=== PATIENT | male | born 1990 | race Caucasian/White ===

== ENCOUNTER 2019-06-09 21:44 | Observation (INO) | payer BC, SELFPAY ==
[~2019-06-09 21:44] MED LIST: Iopamidol-370 76% 500 ML 1 ML ONE
[2019-06-09] MEDS ORDERED: Ondansetron PF 4 MG/2 ML Vial ONE (22:07)
[2019-06-09] MEDS ORDERED: Ketorolac Tromethamine 30 MG/ML VIAL ONE (22:12)
[2019-06-09] MEDS ORDERED: Lorazepam 2 MG/ML VIAL ONE (22:12)
[2019-06-09 22:14] LABS: #Basophils 0.2 thou/uL (0.0-0.2); #Eosinphils 0.3 thou/uL (0.0-0.7); %Basophils 1.1 % (0.0-1.0); %Eosinophils 2.3 % (0.0-10.0); %Monocytes 7.4 % (0.0-10.0); %Neutrophils 52.2 % (42.0-75.0); Hemoglobin 18.4 g/dL (14.0-18.0); Mean Corpuscular HGB CONC 35.5 g/dL (32.0-36.0); Mean Corpuscular Hemoglobin 33.7 pg (27.0-31.0); Mean Corpuscular Volume 94.8 fL (78.0-98.0); Mean Platelet Volume 7.8 fL (7.4-10.4); Platelet Count 315 thou/uL (130-400); RBC Distribution Width 11.2 % (11.5-14.5); Red Blood Cell (RBC) Count 5.46 mill/uL (4.70-6.10); White Blood Cell (WBC) Count 13.4 thou/uL (4.8-10.8)
[2019-06-09] MEDS ORDERED: CEFAZOLIN 1 GM VIAL ONE ×2 (22:18→22:19)
[2019-06-09] MEDS ORDERED: Morphine 4 MG/ML VIAL ONE (22:18)
[2019-06-09] MEDS ORDERED: Adacel (T-DAP) 0.5 ML SYRINGE ONE (22:18)
[2019-06-09 22:21] LABS: BHCG - Serum Negative; Pregs Control Background? CLEAR/WHITE (CLR/WHITE); Pregs Control Bar Appear? YES (CONTROL BAR)
[2019-06-09 22:27] LABS: ALT (SGPT) 59 U/L (8-55); AST (SGOT) 63 U/L (5-34); Alkaline Phosphatase 91 U/L (40-110); Anion Gap 19 mmol/L (10-20); BUN (Urea Nitrogen) 19 mg/dL (8.9-20.6); Bilirubin, Total 0.4 mg/dL (0.2-1.2); Calc. Creatinine Clearance 0 mL/min (70-130); Calcium 10.2 mg/dL (7.8-10.44); Carbon Dioxide 22 mmol/L (22-29); Chloride 101 mmol/L (98-107); Estimated GFR-MDRD 74; Globulin 3.2 g/dL (2.4-3.5); Glucose 130 mg/dL (70-105); Lipase 63 U/L (8-78); Potassium 3.3 mmol/L (3.5-5.1); Protein, Total 8.2 g/dL (6.0-8.3); Sodium 139 mmol/L (136-145)
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
[2019-06-09] MEDS ORDERED: Lidocaine 1% w/Epinephrine 1:100K 20 ML VIAL ONE (23:05)
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
[2019-06-09 23:12] LABS: Acetaminophen Less than 6.0 mcg/mL (10.0-30.0); Alcohol Less than 10 mg/dL (Less than 10); Salicylate Less than 8.0 mg/dL (15.0-30.0)
[2019-06-09 23:15] LABS: Bilirubin Negative (Negative); Blood, Urine Trace (Negative); Clarity Clear (Clear); Glucose, Urine (Dipstick) 100 mg/dL (Negative); Leukocyte Negative (Negative); Nitrite Negative (Negative); Protein, Urine (Dipstick) Negative (Neg-Trace); Urobilinogen 0.2 mg/dL (Less than 2)
[2019-06-09 23:19] LABS: Bacteria/HPF None Seen HPF (None Seen); Squamous Epithelial 0-3 HPF (0-3); WBC/HPF 0-3 HPF (0-3)
[2019-06-09 23:28] LABS: Amphetamine Not Detected (NotDetected); Barbiturates Screen Not Detected (NotDetected); Benzodiazepine Screen Detected (NotDetected); Cocaine Metabolite Screen Not Detected (NotDetected); Medtox Control Line Valid? VALID (VALID); Medtox Reader # READER 4; Methadone Not Detected (NotDetected); Methamphetamine Not Detected (NotDetected); Opiate Screen Detected (NotDetected); Oxycodone Screen Not Detected (NotDetected); Phencyclidine (PCP) Not Detected (NotDetected); THC/Cannabinoid Screen Detected (NotDetected); Tricyclic Screen Not Detected (NotDetected)
[2019-06-10 00:18] LABS: Hemoglobin 16.8 g/dL (14.0-18.0); Mean Corpuscular Hemoglobin 33.9 pg (27.0-31.0); Mean Corpuscular Volume 94.2 fL (78.0-98.0); Platelet Count 267 thou/uL (130-400); RBC Distribution Width 11.1 % (11.5-14.5); Red Blood Cell (RBC) Count 4.95 mill/uL (4.70-6.10); White Blood Cell (WBC) Count 22.4 thou/uL (4.8-10.8)
[2019-06-10 00:36] LABS: Band 6 % (5-11); Lymphocytes 5 % (21-51); MDiff Complete? YES; Monocytes 11 % (0-10); Neutrophil 77 % (42-75); Reactive Lymphocytes 1 % (0-10)
[2019-06-10 00:37] LABS: Free T4 (Free Thyroxine) 0.89 ng/dL (0.70-1.48); Thyroid Stimulating Hormone 3.3532 uIU/mL (0.35-4.94)
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
[2019-06-10] MEDS ORDERED: Cyclobenzaprine 10 MG TAB PO PRN (04:11)
[2019-06-10] MEDS ORDERED: Dextrose 5% in Water 1,000 ML IV PRN (04:11)
[2019-06-10] MEDS ORDERED: Ondansetron ODT 4 MG TAB PO PRN (04:11)
[2019-06-10] MEDS ORDERED: traMADol HCl 50 MG TAB PO PRN (04:11)
[2019-06-10] MEDS ORDERED: Sodium Chloride 0.9% 1,000 ML IV SCH (04:11)
[2019-06-10] MEDS ORDERED: Ondansetron PF 4 MG/2 ML Vial IVP PRN (04:11)
[2019-06-10] MEDS ORDERED: Dextrose 50% Abboject 50 ML SYRINGE SLOW IVP PRN (04:11)
[2019-06-10 05:04] LABS: Magnesium 1.8 mg/dL (1.6-2.6); Phosphorus 2.4 mg/dL (2.3-4.7)
[2019-06-10] MEDS ORDERED: Acetaminophen 325 MG TAB ONE (05:57)
[2019-06-10] MEDS ORDERED: Acetaminophen 325 MG TAB PO SCH (06:00)
[2019-06-10] MEDS ORDERED: traMADol HCl 50 MG TAB ONE (06:11)
[2019-06-10 07:04] LABS: Anion Gap 16 mmol/L (10-20); BUN (Urea Nitrogen) 15 mg/dL (8.9-20.6); Calc. Creatinine Clearance 0 mL/min (70-130); Calcium 9.1 mg/dL (7.8-10.44); Carbon Dioxide 18 mmol/L (22-29); Chloride 109 mmol/L (98-107); Estimated GFR-MDRD Greater than 90; Glucose 115 mg/dL (70-105); Potassium 3.7 mmol/L (3.5-5.1); Sodium 139 mmol/L (136-145)
[2019-06-10] MEDS ORDERED: Famotidine 20 MG TAB PO SCH (09:00)
== END 2019-06-10 11:42 | disposition home or self-care (01) ==
LOC: EDSEX 21:44 → ERS 21:44 → ERHOLD 06-10 01:30
PROVIDERS: ADMIT Surgery; ATTEND Surgery
DX: F07.81 Postconcussional syndrome (principal); S01.81XA Laceration without foreign body of other part of head, initial encounter; S80.02XA Contusion of left knee, initial encounter; S70.02XA Contusion of left hip, initial encounter; F41.9 Anxiety disorder, unspecified; F32.9 Major depressive disorder, single episode, unspecified; E87.6 Hypokalemia; F12.10 Cannabis abuse, uncomplicated; Z79.890 Hormone replacement therapy; Z79.899 Other long term (current) drug therapy; V59.40XA Driver of pick-up truck or van injured in collision with unspecified motor vehicles in traffic accident, initial encounter
CPT/HCPCS: 12011; 36415; 51701; 70450; 70486; 71045; 72125; 74177; 80048; 80053; 80306; 80307; 81003; 81015; 82550; 83690; 83735; 84100; 84439; 84443; 84484; 84703; 85025; 90471; 90715; 96361; 96365; 96375; G0378; G0390; J0690; J1885; J2060; J2270; J2405; Q9967